=== PATIENT | male | born 1980 | race African-American/Black ===

== ENCOUNTER 2020-10-25 11:10 | Inpatient (IN) ==
[2020-10-25 11:50] LABS: Basophils # 0.1 10*3/uL (0.0-0.2); Eosinophils # 0.1 10*3/uL (0.0-0.87); Eosinophils % 2.9 % (0.00-10.9); Hematocrit 45.7 VOL% (42.0-52.0); Hemoglobin 15.5 GM/DL (14.0-18.0); Immature Granulocytes % 0.2 %; Immature Granulocytes Absolute 0.01 #; Lymphocytes % 41.3 % (21.2-54.2); Mean Corpuscular HGB Conc 33.9 GM/DL (32-36); Mean Corpuscular Volume 89.3 FL (87-102); Mean Platelet Volume 11.2 FL (9.6-12.0); Monocytes % 8.5 % (1.7-12.7); Neutrophils % 46.1 % (38.7-73.9); Platelet Count 206 T/CUMM (130-400); Red Blood Count 5.12 MC/CUMM (3.8-5.5); Red Cell Distribution Width 12.1 % (9.3-17.3); White Blood Count 4.8 T/CUMM (4-12)
[2020-10-25 12:04] LABS: PT Patient Result 11.6 SECS (10.5-12.0); Partial Thromboplastin Time 25.4 SECS (23.9-33.8)
[2020-10-25 12:20] LABS: Bilirubin,Urine Negative (Negative); Blood, Urine Negative (Negative); Glucose,Urine (UA) Negative (Negative); Ketones,Urine Negative (Negative); Mucus,Urine Occasional /LPF (Occasional); Nitrite,Urine Negative (Negative); Protein,Urine Negative; RBC,Urine <1 /HPF (0-4); Urine Appearance CLEAR (Clear); Urine Color Yellow (Yellow); Urine Specific Gravity 1.011 (1.001-1.035); Urine Urobilinogen < 2.0 EU/DL (0.2-1.0)
[2020-10-25 12:24] LABS: Albumin 4.4 G/DL (3.4-5.0); Bilirubin,Total 0.6 MG/DL (0.20-1.00); Calcium 9.4 MG/DL (8.5-10.1); Osmolality,Calculated 276.5 MOS/KG (273-304); Potassium 3.9 MMOL/L (3.5-5.1); Total Protein 7.5 G/DL (6.4-8.2)
[2020-10-25] MEDS ORDERED: LORazepam 2 MG/1 ML VIAL IV STA (14:21)
[2020-10-25] MEDS ORDERED: DEXTROSE 50% 25 GM/50 ML VIAL IV PRN (15:46)
[2020-10-25] MEDS ORDERED: GLUCAGON 1 MG VIAL IM PRN (15:46)
[2020-10-25] MEDS: ENOXAPARIN 40 MG/0.4 ML SYRINGE SUBCUT SCH (16:19)
[2020-10-25] MEDS: SODIUM CHLORIDE 0.9% 1,000 ML IV SCH (18:32)
[2020-10-25] MEDS: PANTOPRAZOLE 40 MG VIAL IV SCH (22:07)
[2020-10-26] MEDS: SODIUM CHLORIDE 0.9% 1,000 ML IV SCH ×3 (03:35→13:13)
[2020-10-26 05:21] LABS: Basophils % 0.7 % (0.0-0.8); Eosinophils # 0.2 10*3/uL (0.0-0.87); Eosinophils % 2.7 % (0.00-10.9); Hematocrit 44.8 VOL% (42.0-52.0); Hemoglobin 15.1 GM/DL (14.0-18.0); Immature Granulocytes % 0.2 %; Immature Granulocytes Absolute 0.01 #; Lymphocytes % 36.2 % (21.2-54.2); Mean Corpuscular HGB Conc 33.7 GM/DL (32-36); Mean Corpuscular Volume 90.3 FL (87-102); Mean Platelet Volume 11.6 FL (9.6-12.0); Monocytes % 9.2 % (1.7-12.7); Platelet Count 180 T/CUMM (130-400); Red Blood Count 4.96 MC/CUMM (3.8-5.5); Red Cell Distribution Width 12.3 % (9.3-17.3); White Blood Count 5.5 T/CUMM (4-12)
[2020-10-26 06:04] LABS: Calcium 8.6 MG/DL (8.5-10.1); Osmolality,Calculated 275.5 MOS/KG (273-304); Potassium 3.5 MMOL/L (3.5-5.1); Risk Ratio 4.26; Thyroid Stimulating Hormone 3.05 uIU/ml (0.358-3.74); VLDL Cholesterol 22.2 MG/DL
[2020-10-26] MEDS: PANTOPRAZOLE 40 MG VIAL IV SCH (09:08)
[2020-10-26] MEDS ORDERED: LACTATED RINGERS 1,000 ML IV SCH (11:00)
[2020-10-26] MEDS: LACTATED RINGERS 1,000 ML IV SCH ×2 (11:39→12:49)
[2020-10-26] MEDS ORDERED: LIDOCAINE 2% 5 ML VIAL ONE (11:41)
[2020-10-26] MEDS ORDERED: propofoL 200 MG/20 ML VIAL IV ONE ×2 (11:41→11:51)
[2020-10-26] MEDS: ENOXAPARIN 40 MG/0.4 ML SYRINGE SUBCUT SCH (16:13)
[2020-10-26 17:18] VITALS: BP 143/81
== END 2020-10-26 17:21 | disposition home or self-care (01) | DRG 392 ==
LOC: SUATTDRO → N.ED 11:10 → N.EDINP 15:46 → N.3E 20:31
PROVIDERS: ADMIT Internal Medicine; ATTEND Internal Medicine